=== PATIENT | male | born 1975 | race Two or more races ===

== ENCOUNTER → 2018-08-17 | Outpatient (CLI) | payer OTHER ==
--- NOTE | 2018-08-18 10:33 | US ---
EXAMINATION TYPE: US liver DATE OF EXAM: 08/17/2018 COMPARISON: NONE CLINICAL HISTORY: R94.5 Elevated Liver Function Studies. EXAM MEASUREMENTS: Liver Length: 17.5 cm Gallbladder Wall: 0.3 cm CBD: 0.3 cm Right Kidney: 10.1 x 5.1 x 5.5 cm Patient unable to well hold his breath, extensive overlying bowel gas, technically difficult and limi calista study. Pancreas: Obscured by bowel gas Liver: attenuating, heterogeneous, measures large, limited views Gallbladder: portions visualized wnl, limited views Evidence for sonographic Felix's sign: no CBD: wnl Right Kidney: inferior pole completely obscured by bowel gas IMPRESSION: 1. Mild hepatomegaly. No discrete masses or cysts are evident.
== END ==
LOC: RADUSWWP 10:06
PROVIDERS: ATTEND Internal Medicine Hematology & Oncology
DX: R16.0 Hepatomegaly, not elsewhere classified (principal)
CPT/HCPCS: 76705